=== PATIENT | male | born 1975 | race Caucasian/White ===

== ENCOUNTER 2018-07-07 07:28 | Outpatient (CLI) | payer OTHER | END 2018-07-07 07:45 | disposition home or self-care (01) | LOC: LAB 07:28 | DX: E03.8 Other specified hypothyroidism (principal); E55.9 Vitamin D deficiency, unspecified; E53.8 Deficiency of other specified B group vitamins ==

== ENCOUNTER → 2020-06-11 | Outpatient (CLI) | payer OTHER | END | disposition home or self-care (01) | LOC: LAB → ADM 07:15 → EDSTATUS 06-18 07:15 → CIR.AMB 06-18 07:15 | PROVIDERS: ATTEND Orthopaedic Surgery Sports Medicine | DX: M75.101 Unspecified rotator cuff tear or rupture of right shoulder, not specified as traumatic (principal); Z20.828 Contact with and (suspected) exposure to other viral communicable diseases ==

== ENCOUNTER 2020-09-08 13:20 | Outpatient (CLI) | payer OTHER | END 2020-09-08 13:37 | disposition home or self-care (01) | LOC: SONOGRAMA 13:20 | PROVIDERS: ATTEND Specialist | DX: M65.222 Calcific tendinitis, left upper arm (principal) ==